=== PATIENT | male | born 1995 | race Caucasian/White ===

== ENCOUNTER 2019-03-03 02:36 | Emergency (ER) | payer BC, OTHER ==
[2019-03-03] MEDS ORDERED: HYDROmorphone 1 MG/ML Syringe IVPUSH ONE (03:08)
[2019-03-03] MEDS ORDERED: Ondansetron 4 MG/2 ML SDV IVPUSH ONE (03:09)
[2019-03-03] MEDS ORDERED: Sodium Chloride 0.9% 1,000 ML IV SCH (03:15)
[2019-03-03] MEDS ORDERED: Ketorolac 30 MG/ML SDV IVPUSH SCH (03:15)
--- NOTE | 2019-03-03 03:15 | EDM.PDOC ---
ED HPI GENERAL MEDICAL PROBLEM - General Chief Complaint: Chest Pain Stated Complaint: CHEST PAIN Time Seen by Provider: 03/03/19 03:08 Source of Information: Reports: Patient, Family (mother) History Limitations: Reports: No Limitations - History of Present Illness INITIAL COMMENTS - FREE TEXT/NARRATIVE: 23-year-old male presents to the ED with sudden onset of severe left parasternal sharp stabbing pain made worse by deep breathing about 3 and half hours ago. He states it's been constant and seems to be radiating down towards the left nipple. It is worsened by deep breathing. He denies any cough or sputum production no fever or chills. No recent chest wall trauma. 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 He has no risk factors or recent travel history to support a diagnosis of DVT. He is otherwise in good health takes no medications. He used to smoke cigarettes but quit in 2018.. Onset: Today Onset Date: 03/03/19 Onset Time: 00:00 Duration: Hour(s):, Constant, Getting Worse, Other (Intensifies once in a while especially with deep breathing.) Location: Reports: Chest (Sharp pleuritic chest pain just to the left of the lower sternum that radiates towards the left nipple.) Quality: Reports: Sharp, Stabbing Severity: Moderate Improves with: Reports: Rest Worsens with: Reports: Movement (7 on a 10 certain movements make it worse and deep breathing.) Context: Denies: Activity, Exercise, Lifting, Sick Contact, Trauma, Other Associated Symptoms: Reports: No Other Symptoms, Chest Pain, Shortness of Breath. 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 CLERK TYPIST: Reports: Other (see below) Lower Chest Pain Score (Numeric/FACES): 7 - Related Data Allergies Allergy/AdvReac Type Severity Reaction Status Date / Time azithromycin [From Zithromax] Allergy Cannot Verified 03/03/19 02:44 Remember Home Meds: Home Meds Diclofenac Sodium [Voltaren] 50 mg PO TID #21 tab.ec 03/03/19 [Rx] Past Medical History - Past Health History Medical/Surgical History: Denies Medical/Surgical History - Past Surgical History Male Surgical History: Reports: Circumcision Social & Family History - Family History Family Medical History: Noncontributory - Tobacco Use Smoking Status *Q: Former Smoker Used Tobacco, but Quit: Yes Month/Year Tobacco Last Used: 2018 - Caffeine Use Caffeine Use: Reports: None - Recreational Drug Use Recreational Drug Use: No ED ROS GENERAL - Review of Systems Review Of Systems: See Below Constitutional: Denies: Fever, Chills, Malaise, Weakness, Fatigue, Diaphoresis, Decreased Appetite, Weight Loss HEENT: Reports: No Symptoms Respiratory: Reports: Shortness of Breath, Pleuritic Chest Pain (Left parasternal area and into the left). Denies: Wheezing, Cough, Sputum ( lung lower lung field.), Hemoptysis, Other Cardiovascular: Reports: Chest Pain. Denies: Blood Pressure Problem, Claudication, Dyspnea on Exertion, Edema, Lightheadedness, Orthopnea (See history of present illness), Palpitations Endocrine: Reports: No Symptoms GI/Abdominal: Reports: No Symptoms : Reports: No Symptoms Musculoskeletal: Reports: No Symptoms Skin: Reports: No Symptoms Neurological: Reports: No Symptoms Psychiatric: Reports: No Symptoms Hematologic/Lymphatic: Reports: No Symptoms Immunologic: Reports: No Symptoms ED EXAM, GENERAL - Physical Exam Exam: See Below Exam Limited By: No Limitations General Appearance: Alert, WD/WN, No Apparent Distress, Other (Vital signs show temperature 36.1 which is inaccurate. Pulse is 92 respiratory to be 18 sats 99% on room air BP mildly elevated 160 /10/16 on initial assessment. It is currently down to 144/98) Eye Exam: Bilateral Eye: Normal Inspection Ears: Normal TMs Neck: Normal Inspection, Supple, Non-Tender, Full Range of Motion. No: Lymphadenopathy (L), Lymphadenopathy (R) Respiratory/Chest: No Respiratory Distress, Lungs Clear, Normal Breath Sounds, No Accessory Muscle Use, Chest Non-Tender, Other Cardiovascular: Normal Peripheral Pulses (I cannot elicit any chest wall tenderness on deep palpation on either anterior sides of his chest. No posterior thoracic pain either.), Regular Rate, Rhythm, No Edema, No Gallop, No Murmur, No Rub Peripheral Pulses: 3+: Posterior Tibial (L), Posterior Tibial (R), Dorsalis Pedis (L), Dorsalis Pedis (R) GI/Abdominal: Normal Bowel Sounds, Soft, Non-Tender, No Organomegaly, No Distention, No Abnormal Bruit, No Mass, Pelvis Stable, Other (No epigastric pain negative Walker sign) Back Exam: Normal Inspection, Full Range of Motion. No: CVA Tenderness (L), Paraspinal Tenderness Extremities: Normal Inspection, Normal Range of Motion, Non-Tender, No Pedal Edema Neurological: Alert, Oriented, CN II-XII Intact, Normal Cognition Psychiatric: Normal Affect, Normal Mood Skin Exam: Warm, Dry, Intact, Normal Color, No Rash EKG INTERPRETATION EKG Date: 03/03/19 Time: 02:42 Rhythm: NSR Rate (Beats/Min): 93 [place]: Normal P-Wave: Present QRS: Other (Left ventricular hypertrophy pattern normal for his age and stature) ST-T: Normal QT: Normal EKG Interpretation Comments: Normal ECG for his age Course - Vital Signs Last Recorded V/S: Last Vital Signs Temp 36.1 C 03/03/19 02:42 Pulse 92 03/03/19 02:42 Resp 18 03/03/19 02:42 BP 165/106 H 03/03/19 02:42 Pulse Ox 99 03/03/19 02:42 - Orders/Labs/Meds Orders: Active Orders 24 hr Category Date Time Status EKG Documentation Completion [RC] STAT Care 03/03/19 02:48 Active Chest 1V Frontal [CR] Stat Exams 03/03/19 02:48 Taken Ketorolac [Toradol] Med 03/03/19 03:15 Active 30 mg IVPUSH ONETIME Sodium Chloride 0.9% [Normal Saline] 1,000 ml Med 03/03/19 03:15 Active IV ASDIRECTED Medication Orders Sodium Chloride (Normal Saline) 1,000 mls @ 150 mls/hr IV ASDIRECTED BAILEY Last Admin: 03/03/19 03:19 Dose: 150 mls/hr Ketorolac Tromethamine (Toradol) 30 mg IVPUSH ONETIME BAILEY Last Admin: 03/03/19 03:19 Dose: 30 mg Labs: Laboratory Tests 03/03/19 03/03/19 03/03/19 Range/Units 03:15 03:15 03:15 WBC 11.03 H (4.23-9.07) K/mm3 RBC 5.64 (4.63-6.08) M/mm3 Hgb 16.3 (13.7-17.5) gm/L Hct 47.6 (40.1-51.0) % MCV 84.4 (79.0-92.2) fl MCH 28.9 (25.7-32.2) pg MCHC 34.2 (32.2-35.5) g/dl RDW Std Deviation 40.0 (35.1-43.9) fL Plt Count 351 H (163-337) K/mm3 MPV 8.8 L (9.4-12.3) fl Neutrophils % (Manual) 62 H (40-60) % Band Neutrophils % 1 (0-10) % Lymphocytes % (Manual) 27 (20-40) % Atypical Lymphs % 0 % Monocytes % (Manual) 8 (2-10) % Eosinophils % (Manual) 2 (0.8-7.0) % Basophils % (Manual) 0 L (0.2-1.2) Platelet Estimate Adequate Plt Morphology Comment Normal RBC Morph Comment Normal D-Dimer, Quantitative < 0.19 L (0.19-0.50) mg/L Sodium 140 (136-145) mEq/L Potassium 4.0 (3.5-5.1) mEq/L Chloride 102 (98-107) mEq/L Carbon Dioxide 28 (21-32) mEq/L Anion Gap 14.0 (5-15) BUN 18 (7-18) mg/dL Creatinine 1.0 (0.7-1.3) mg/dL Est Cr Clr Drug Dosing 124.45 mL/min Estimated GFR (MDRD) > 60 (>60) mL/min BUN/Creatinine Ratio 18.0 (14-18) Glucose 122 H (74-106) mg/dL Calcium 9.2 (8.5-10.1) mg/dL Total Bilirubin 0.4 (0.2-1.0) mg/dL AST 24 (15-37) U/L ALT 40 (16-63) U/L Alkaline Phosphatase 80 (46-116) U/L CK-MB (CK-2) 1.4 (0-3.6) ng/ml Troponin I < 0.017 (0.00-0.056) ng/mL C-Reactive Protein 1.0 (<1.0) mg/dL Total Protein 7.7 (6.4-8.2) g/dl Albumin 4.1 (3.4-5.0) g/dl Globulin 3.6 gm/dL Albumin/Globulin Ratio 1.1 (1-2) Meds: Medications Generic Name Dose Route Start Last Admin Trade Name Margy PRN Reason Stop Dose Admin Sodium Chloride 1,000 mls @ 150 mls/hr 03/03/19 03:15 03/03/19 03:19 Normal Saline IV 150 mls/hr ASDIRECTED BAILEY Administration Ketorolac Tromethamine 30 mg 03/03/19 03:15 03/03/19 03:19 Toradol IVPUSH 30 mg ONETIME BAILEY Administration Discontinued Medications Generic Name Dose Route Start Last Admin Trade Name Freq PRN Reason Stop Dose Admin Dexamethasone 10 mg 03/03/19 04:32 Dexamethasone IV 03/03/19 04:33 ONETIME ONE Hydromorphone HCl 0.5 mg 03/03/19 03:08 03/03/19 03:19 Dilaudid IVPUSH 03/03/19 03:09 0.5 mg ONETIME ONE Administration Ondansetron HCl 4 mg 03/03/19 03:09 03/03/19 03:19 Zofran IVPUSH 03/03/19 03:10 4 mg ONETIME ONE Administration - Radiology Interpretation Free Text/Narrative:: 23-year-old male presents to the ED with acute onset of left anterior parasternal sharp stabbing pleuritic chest pain about 3-1/2 hours ago. He now is radiating slightly towards the left nipple. Made worse by certain movements and by deep breathing. No associated cough fever or chills. Lungs are clear to auscultation percussion. No chest wall pain elicited on exam. ECG shows normal sinus rhythm at 93/m with no other abnormalities noted. Portable chest x-ray is normal as well. Plan routine labs including a d-dimer. IV normal saline at 150 mils per hour. Given Toradol 30 mg IV with Dilaudid 0.5 mg IV and Zofran 4 mg IV for pain relief. - Re-Assessments/Exams Free Text/Narrative Re-Assessment/Exam: 03/03/19 04:27 Labs reveal a slightly elevated white count of 11.03. The differential 62% neutrophils and 1% bands. Hemoglobin is 16.3 with hematocrit of 47.6 indicating mild hemoconcentration. Plan count 351,000. D-dimer was less than 0.19. Sodium is 140 with a potassium of 4.0. Chloride 102 with a bicarbonate of 28. And a gap is 14.0. BUN is 18 with a creatinine of 1.0. GFR is greater than 60. Glucose 122. Calcium 9.2. Liver function normal. CK-MB was 1.4 troponin I is less than 0.017. C-reactive protein is 1.0. Total protein is 7.7. Albumin fraction is 4.1. 03/03/19 04:33 labs essentially are normal and did not shed any light in the obvious cause of pleuritic chest pain. It is most likely viral in origin. Patient is feeling much improved. States he has very minimal discomfort in his left precordial chest at this time. He is able to take a full deep breath now. To give him a dose of dexamethasone 10 mg IV to further reduce inflammation. I will put him on Voltaren 50 mg 3 times a day for the next 7 days to take away pain and inflammation. He will follow-up if he develops any kind of fever chills or productive cough. Departure - Departure Time of Disposition: 04:34 Disposition: Home, Self-Care 01 Condition: Fair Clinical Impression: Pleuritic chest pain, Non-cardiac chest pain Prescriptions: Diclofenac Sodium [Voltaren] 50 mg PO TID #21 tab.ec Referrals: PCP,None [Ordering Only Provider] - Forms: ED Department Discharge Additional Instructions: Evaluation the emergency room tonight in regards to development of significant left parasternal anterior chest pain which was very sharp and stabbing suggesting a pleuritic component to the pain. I.e. was worsened by taking a deep breath. Of illness otherwise in terms of fever chills or productive cough. ECG proved to be completely normal. Chest x-ray was normal as well. Lab tests revealed no signs of an infective process. He also did not show any signs of blood clot in the lung or heart related illness. This is most likely caused by a viral infection in the lining of the chest wall usually the pleura that lines the inside of the rib cage or the muscles in between the ribs. You're treated in the ED with anti-inflammatory Toradol 30 mg IV and a small dose of pain medicine Dilaudid 0.5 mg. You were also given dexamethasone 10 mg IV prior to discharge which will start to work in 4-6 hours to repeat reduce inflammation further. I suggest starting anti-inflammatory Voltaren 50 mg 3 times daily for the next 7 days to further reduce pain and inflammation. Return to medical care if you develop fever chills or productive cough. Follow-up with personal care physician if not markedly improved in 5-7 days time. - My Orders Last 24 Hours: My Active Orders 03/03/19 02:48 EKG Documentation Completion [RC] STAT Chest 1V Frontal [CR] Stat 03/03/19 03:15 Ketorolac [Toradol] 30 mg IVPUSH ONETIME Sodium Chloride 0.9% [Normal Saline] 1,000 ml IV ASDIRECTED - Assessment/Plan Last 24 Hours: My Active Orders 03/03/19 02:48 EKG Documentation Completion [RC] STAT Chest 1V Frontal [CR] Stat 03/03/19 03:15 Ketorolac [Toradol] 30 mg IVPUSH ONETIME Sodium Chloride 0.9% [Normal Saline] 1,000 ml IV ASDIRECTED
[2019-03-03] MEDS ORDERED: Dexamethasone 4 MG/ML 5 ML MDV IV ONE (04:32)
--- NOTE | 2019-03-03 09:02 | CR ---
Chest: Frontal view of the chest was obtained. Comparison: No prior chest x-ray. Heart size and mediastinum are normal. Lungs are clear. Bony structures are unremarkable. Impression: 1. Nothing acute is appreciated on frontal chest x-ray. Diagnostic code #1
== END 2019-03-03 04:50 | disposition home or self-care (01) ==
LOC: JD.ED 02:36
DX: R07.81 Pleurodynia (principal); Z88.1 Allergy status to other antibiotic agents; Z87.891 Personal history of nicotine dependence
CPT/HCPCS: 36415; 71045; 80053; 82553; 84484; 85007; 85027; 85379; 86140; 93005; 96361; 96374; 96375; 99284; J1100; J1170; J1885; J2405; J7040; 93010; 99285

== ENCOUNTER 2019-07-22 12:26 | Emergency (ER) | payer OTHER ==
--- NOTE | 2019-07-22 14:27 | EDM.PDOC ---
ED HPI GENERAL MEDICAL PROBLEM - General Chief Complaint: Abdominal Pain Stated Complaint: ABDOMINAL PAIN Time Seen by Provider: 07/22/19 13:58 Source of Information: Reports: Patient, Family (Mother) History Limitations: Reports: No Limitations - History of Present Illness INITIAL COMMENTS - FREE TEXT/NARRATIVE: Mr. Atkins is a very pleasant 23-year-old man with no significant past medical or surgical history, who states that he has had nausea and vomiting on and off for the past 4 weeks, and right upper quadrant abdominal pain that radiates to his right lower quadrant on and off for the past 2 weeks. The pain does not radiate to his back. It is sharp in character. When present, it typically persists for about 3-4 hours, with an hour or two in between episodes. His pain is not modified with food, although his nausea and vomiting is worsened if he eats or drinks. He states that he feels best if he is in the position, worse if he is upright or walking, and he reported that his pain was made worse when I jiggled his gurney. No recent fever. The patient reports loose bowel movements about one week ago, but none since. The patient states that he saw his PCP on 07/17/2019. A CBC, CMP, lipase level, amylase level, and CRP were performed and all returned unremarkable. He was prescribed Zofran. His symptoms did not improve, therefore he saw his PCP again on 07/20/2019. A repeat CBC, CMP, lipase level, amylase level, and CRP were repeated (on 07/19/2019, prior to his followup visit), and all were again unremarkable. An ultrasound of his right upper quadrant performed on 07/19/2019 demonstrated sludge in his gallbladder, and the report indicates a sonographic Walker's sign, with the remainder of the ultrasound being negative. The patient was prescribed [place], with the plan for him to undergo an outpatient CT scan of his abdomen and pelvis with oral and IV contrast, however, that CT scan has not yet been scheduled. The patient states that he has been eating a low-fat diet. His last oral food was around 18:30 last night. The patient's PCP is Bridget Rockwell NP. Right Upper Abdomen Pain Score (Numeric/FACES): 7 - Related Data Allergies Allergy/AdvReac Type Severity Reaction Status Date / Time azithromycin [From Zithromax] Allergy Cannot Verified 07/22/19 12:45 Remember Home Meds: Home Meds Hydrocodone/Acetaminophen [Hydrocodon-Acetaminophen 5-325] 1 tab PO Q4H PRN 09/28 [History] Omeprazole Magnesium [Prilosec Otc] 20 mg PO DAILY PRN 07/22/19 [History] Ondansetron [Zofran] 4 mg PO Q4H PRN 07/22/19 [History] Past Medical History - Infectious Disease History Infectious Disease History: Reports: Chicken Pox - Past Surgical History Male Surgical History: Reports: Circumcision Social & Family History - Family History Family Medical History: Noncontributory - Tobacco Use Smoking Status *Q: Current Some Day Smoker Tobacco Use Within Last Twelve Months: Smokeless Tobacco (Quit chewing tobacco 2017), Vaping (nicotine) - Caffeine Use Caffeine Use: Reports: Soda - Alcohol Use Alcohol Use History: Yes Alcohol Use Frequency: Socially - Recreational Drug Use Recreational Drug Use: No - Living Situation & Occupation Living situation: Reports: Single, with Family 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 ED EXAM, GI/ABD - Physical Exam Exam: See Below Exam Limited By: No Limitations General Appearance: Alert, No Apparent Distress, Thin Eyes: Bilateral: Normal Appearance, EOMI Ears: Normal External Exam, Hearing Grossly Normal Nose: Normal Inspection Throat/Mouth: Normal Inspection, Normal Lips, Normal Voice, No Airway Compromise Head: Atraumatic, Normocephalic Neck: Normal Inspection, Full Range of Motion Respiratory/Chest: No Respiratory Distress, Lungs Clear, Normal Breath Sounds, No Accessory Muscle Use Cardiovascular: Normal Peripheral Pulses, Regular Rate, Rhythm, No Edema, No Gallop, No JVD, No Murmur, No Rub GI/Abdominal Exam: Normal Bowel Sounds, Soft, No Organomegaly, No Distention, No Abnormal Bruit, No Mass, Tender (Mild, to the right upper quadrant only. Nontender to the right lower quadrant or elsewhere.) (Male) Exam: Deferred Rectal (Males) Exam: Deferred Back Exam: Normal Inspection, Full Range of Motion, CVA Tenderness (R) (Mild, lower flank. Nontender to palpation without percussion.). No: CVA Tenderness (L ) Extremities: Normal Inspection, Normal Range of Motion, No Pedal Edema, Normal Capillary Refill Neurological: Alert, Oriented, Normal Cognition, No Motor/Sensory Deficits Psychiatric: Normal Affect Skin Exam: Warm, Dry, Intact, Normal Color, No Rash Course - Vital Signs Last Recorded V/S: Last Vital Signs Temp 36.4 C 07/22/19 12:37 Pulse 67 07/22/19 12:37 Resp 18 07/22/19 12:37 BP 124/85 07/22/19 12:37 Pulse Ox 95 07/22/19 12:37 - Orders/Labs/Meds Orders: Active Orders 24 hr Category Date Time Status Sodium Chloride 0.9% [Normal Saline] 1,000 ml Med 07/22/19 14:30 Active IV ASDIRECTED Medication Orders Sodium Chloride (Normal Saline) 1,000 mls @ 150 mls/hr IV ASDIRECTED BAILEY Last Admin: 07/22/19 15:07 Dose: 150 mls/hr Labs: Laboratory Tests 07/22/19 Range/Units 16:10 Urine Color Yellow (Yellow) Urine Appearance Clear (Clear) Urine pH 7.0 (5.0-8.0) Ur Specific [place] 1.015 (1.005-1.030) Urine Protein Negative (Negative) Urine Glucose (UA) Negative (Negative) Urine Ketones Negative (Negative) Urine Occult Blood Negative (Negative) Urine Nitrite Negative (Negative) Urine Bilirubin Negative (Negative) Urine Urobilinogen 1.0 (0.2-1.0) Ur Leukocyte Esterase Negative (Negative) Urine RBC Not seen (0-5) /hpf Urine WBC 0-5 (0-5) /hpf Ur Squamous Epith Cells 0-5 (0-5) /hpf Urine Bacteria Not seen (FEW) /hpf Urine Mucus Not seen (FEW) /hpf Meds: Medications Generic Name Dose Route Start Last Admin Trade Name Freq PRN Reason Stop Dose Admin Sodium Chloride 1,000 mls @ 150 mls/hr 07/22/19 14:30 07/22/19 15:07 Normal Saline IV 150 mls/hr ASDIRECTED BAILEY Administration Discontinued Medications Generic Name Dose Route Start Last Admin Trade Name Freq PRN Reason Stop Dose Admin Diatrizoate Meglum/Diatrizoate Sod 90 ml 07/22/19 15:56 07/22/19 16:24 Gastrografin 37% PO 07/22/19 15:57 90 ml ONETIME ONE Administration Iopamidol 100 ml 07/22/19 15:56 07/22/19 16:24 Isovue-300 (61%) IVPUSH 07/22/19 15:57 100 ml ONETIME ONE Administration Sodium Chloride 10 ml 07/22/19 15:56 07/22/19 16:24 Saline Flush FLUSH 07/22/19 15:57 10 ml ONETIME ONE Administration - Re-Assessments/Exams Free Text/Narrative Re-Assessment/Exam: 07/22/19 14:26 The etiology of the patient's symptoms is not immediately clear. His pain and tenderness is primarily in the right upper quadrant, and he has biliary sludge on an earlier ultrasound of the right upper quadrant, suggesting biliary colic, however, he also states that his pain radiates to his right lower quadrant, not to his right back, and his pain is not associated with food. For today's purposes, we will check a urinalysis to make sure that he does not have an unusual presentation of a ureterolith, along with a CT scan of his abdomen and pelvis with oral and IV contrast. The patient will be given IV fluid, but declined an offer for pain and antinausea medicine at this time. I do not see an indication to repeat blood work, since 2 sets of exhaustive bloodwork recently have been completely normal. 07/22/19 16:54 The patient's urinalysis is unremarkable. CT of the abdomen and pelvis with oral and IV contrast is read by Dr. Anthony as: 1. Slightly prominent bladder wall. Please correlate that patient has no symptoms of cystitis. This may relate to lack of distention. 2. Appendix is seen and is normal in size. 3. No additional abnormality is noted. 07/22/19 17:15 Test results discussed with the patient and his mother. As above, today's workup is completely negative. Oddly, this may actually increase the likelihood that his pain is due to biliary colic, since other etiologies have effectively been ruled out. The next appropriate test would be a HIDA scan, which I explained to the patient needs to be done as an outpatient. Since the patient is already being worked up for this condition by his PCP, I am recommending that he follow up with her to order the HIDA scan, as opposed to referring him to a surgeon. Departure - Departure Time of Disposition: 17:16 Disposition: Home, Self-Care 01 Condition: Good Clinical Impression: Right upper quadrant abdominal pain of unknown etiology - Discharge Information *PRESCRIPTION DRUG MONITORING PROGRAM REVIEWED*: Not Applicable *COPY OF PRESCRIPTION DRUG MONITORING REPORT IN PATIENT JONATHAN: Not Applicable Instructions: Abdominal Pain, Adult, [id number] Referrals: Bridget Rockwell NP [Primary Care Provider] - Forms: ED Department Discharge Additional Instructions: You were seen in the emergency room for evaluation for 4 weeks of nausea and vomiting and 2 weeks of right upper abdominal pain. Workup in the ER included a urinalysis and a CT scan of your abdomen and pelvis with oral and IV contrast. Since you recently had negative blood work, additional blood work was not repeated today. Your entire workup was unremarkable. You do not have a urinary tract infection. He did not have appendicitis. He did not have pancreatitis. The cause of your abdominal symptoms is not known, but could be due to a sick gallbladder. Further evaluation is needed. The next appropriate test would be a HIDA scan. This is an outpatient study that cannot be performed from the ER. We recommend that you follow-up with your PCP, Bridget Rockwell NP, to arrange or this test. As before, we recommend that you eat as low-fat a diet as possible. Stay adequately hydrated. If any other problems, please do not hesitate to return to the ER. - My Orders Last 24 Hours: My Active Orders 07/22/19 14:30 Sodium Chloride 0.9% [Normal Saline] 1,000 ml IV ASDIRECTED - Assessment/Plan Last 24 Hours: My Active Orders 07/22/19 14:30 Sodium Chloride 0.9% [Normal Saline] 1,000 ml IV ASDIRECTED
[2019-07-22] MEDS ORDERED: Sodium Chloride 0.9% 1,000 ML IV SCH (14:30)
[2019-07-22] MEDS ORDERED: Iopamidol 612 MG/ML 100 ML Bottle IVPUSH ONE (15:56)
[2019-07-22] MEDS ORDERED: Sodium Chloride 0.9% 10 ML Syringe FLUSH ONE (15:56)
[2019-07-22] MEDS ORDERED: Diatrizoate Meglumine/Diatrizoate Sodium 37% 120 ML Bottle PO ONE (15:56)
--- NOTE | 2019-07-22 16:38 | CT ---
CT abdomen and pelvis Technique: Multiple axial sections were obtained from above the dome of the diaphragm inferiorly through the pubic symphysis. Intravenous and oral contrast was utilized. Comparison: No prior abdominal imaging. Findings: Visualized lung bases show nothing acute. Liver contains no focal parenchymal abnormality. Spleen appears within normal limits. Adrenal glands show no nodule. Pancreas is within normal limits. Gallbladder contains no calcified gallstones. Kidneys show symmetric contrast enhancement without hydronephrosis or mass. Aorta shows no aneurysm. No retroperitoneal adenopathy or mesenteric abnormalities are seen. No pelvic mass or adenopathy is seen. Appendix is seen and is normal in size. Slightly prominent bladder wall is noted. No free fluid or inflammatory change is seen. Bone window settings were reviewed which appear within normal limits for the patient's age. Impression: 1. Slightly prominent bladder wall. Please correlate that patient has no symptoms of cystitis. This may relate to lack of distention. 2. Appendix is seen and is normal in size. 3. No additional abnormality is noted. Diagnostic code #3
== END 2019-07-22 17:40 | disposition home or self-care (01) ==
LOC: JD.ED 12:26
DX: R10.11 Right upper quadrant pain (principal); F17.290 Nicotine dependence, other tobacco product, uncomplicated; Z88.1 Allergy status to other antibiotic agents
CPT/HCPCS: 74177; 81001; 96360; 96361; 99284; J7040; Q9963; Q9967

== ENCOUNTER 2019-07-26 11:19 | Day surgery (SDC) | payer OTHER ==
--- NOTE | 2019-07-26 10:54 | PCM.PREANE ---
Preanesthetic Assessment - Anesthesia/Transfusion/Family Hx Anesthesia History: No Prior Anesthesia Family History of Anesthesia Reaction: No Transfusion History: No Prior Transfusion(s) - Review of Systems General: No Symptoms Pulmonary: Other (current smoker) Cardiovascular: No Symptoms Gastrointestinal: Abdominal Pain Neurological: No Symptoms Other: Reports: None - Physical Assessment NPO Status Date: 07/25/19 NPO Status Time: 18:00 Weight: 81 kg ASA Class: 2 Mental Status: Alert & Oriented x3 Airway Class: Mallampati = 1 Dentition: Reports: Normal Dentition Thyro-Mental Finger Breadths: 3 Mouth Opening Finger Breadths: 3 ROM/Head Extension: Full Lungs: Clear to Auscultation, Normal Respiratory Effort Cardiovascular: Regular Rate, Regular Rhythm - Allergies Allergies/Adverse Reactions: Allergies Allergy/AdvReac Type Severity Reaction Status Date / Time azithromycin [From Zithromax] Allergy Cannot Verified 07/22/19 12:45 Remember - Blood Blood Available: No Product(s) Available: None - Anesthesia Plan Pre-Op Medication Ordered: None - Acknowledgements Anesthesia Type Planned: General Anesthesia Pt an Appropriate Candidate for the Planned Anesthesia: Yes Alternatives and Risks of Anesthesia Discussed w Pt/Guardian: Yes Pt/Guardian Understands and Agrees with Anesthesia Plan: Yes PreAnesthesia Questionnaire - Past Health History Medical/Surgical History: Denies Medical/Surgical History - Infectious Disease History Infectious Disease History: Reports: Chicken Pox - Past Surgical History Male Surgical History: Reports: Circumcision - HOME MEDS Home Medications: Home Meds Hydrocodone/Acetaminophen [Hydrocodon-Acetaminophen 5-325] 1 tab PO Q4H PRN 09/28 [History] Omeprazole Magnesium [Prilosec Otc] 20 mg PO DAILY PRN 07/22/19 [History] Ondansetron [Zofran] 4 mg PO Q4H PRN 07/22/19 [History] - CURRENT (IN HOUSE) MEDS Current Meds: Current Medications Ampicillin Sodium/Sulbactam (Sodium 3 gm/ Sodium Chloride) 100 mls @ 200 mls/ hr IV ONETIME ONE Stop: 07/26/19 12:29 Discontinued Medications Bupivacaine HCl (Marcaine 0.5%) Confirm Administered Dose 30 ml .ROUTE .STK-MED ONE Stop: 07/26/19 10:02 Cefazolin Sodium (Ancef) Confirm Administered Dose 2 gm .ROUTE .STK-MED ONE Stop: 07/26/19 09:44 Dexamethasone (Dexamethasone) Confirm Administered Dose 20 mg .ROUTE .STK-MED ONE Stop: 07/26/19 09:44 Fentanyl (Sublimaze) Confirm Administered Dose 250 mcg .ROUTE .STK-MED ONE Stop: 07/26/19 09:44 Lactated Ringer's (Ringers, Lactated) Confirm Administered Dose 1,000 mls @ as directed .ROUTE .ST-MED ONE Stop: 07/26/19 09:44 Iopamidol (Isovue-300 (61%)) Confirm Administered Dose 50 ml .ROUTE .ST-MED ONE Stop: 07/26/19 10:01 Midazolam HCl (Versed 1 Mg/Ml) Confirm Administered Dose 2 mg .ROUTE .ST-MED ONE Stop: 07/26/19 09:44 Ondansetron HCl (Zofran) Confirm Administered Dose 4 mg .ROUTE .STK-MED ONE Stop: 07/26/19 09:44 Propofol (Diprivan 20 Ml) Confirm Administered Dose 200 mg .ROUTE .STK-MED ONE Stop: 07/26/19 09:44 Rocuronium [place] (Zemuron) Confirm Administered Dose 50 mg .ROUTE .STK-MED ONE Stop: 07/26/19 09:44 Sodium Chloride (Normal Saline) Confirm Administered Dose 50 ml .ROUTE .STK-MED ONE Stop: 07/26/19 10:02
[~2019-07-26 11:19] MED LIST: Bupivacaine 0.5% 30 ML SDV ONE; Dexamethasone 4 MG/ML 5 ML MDV ONE; Iopamidol 612 MG/ML 50 ML SDV ONE; Lactated Ringers 1,000 ML ONE; Midazolam 1 MG/ML 2 ML SDV ONE; Ondansetron 4 MG/2 ML SDV ONE; Propofol 200 MG/20 ML SDV ONE; Rocuronium 50 MG/5 ML Vial ONE; Sodium Chloride 0.9% 50 ML SDV ONE; ceFAZolin 1 GM Vial ONE; fentaNYL 250 MCG/5 ML SDV ONE
[2019-07-26] MEDS ORDERED: Lidocaine 1% 4 ML ONE (11:25)
[2019-07-26] MEDS ORDERED: Lidocaine 1%/Sod Bicarbonate in NS 8.4% 1 ML Syringe IDERM PRN (11:51)
[2019-07-26] MEDS ORDERED: Sodium Chloride 0.9% 10 ML Syringe FLUSH PRN (11:51)
[2019-07-26] MEDS ORDERED: Ampicillin/Sulbactam Na 3 GM in Sodium Chloride 0.9% 100 ML IV ONE (12:00)
[2019-07-26] MEDS ORDERED: Lactated Ringers 1,000 ML IV SCH (12:00)
[2019-07-26] MEDS ORDERED: HYDROmorphone 0.5 MG/0.5 ML Syringe ONE ×2 (12:32→13:01)
[2019-07-26] MEDS ORDERED: Ketorolac 30 MG/ML SDV ONE (12:43)
[2019-07-26] MEDS ORDERED: Ketamine 500 mg/10 ML MDV ONE (12:43)
[2019-07-26] MEDS ORDERED: Neostigmine Methylsulfate 1 MG/ML 5 ML Syringe ONE (13:03)
[2019-07-26] MEDS ORDERED: Albuterol 0.083% 2.5 MG/3 ML Neb Soln NEB PRN (13:08)
[2019-07-26] MEDS ORDERED: Ondansetron 4 MG/2 ML SDV IVPUSH PRN (13:08)
[2019-07-26] MEDS ORDERED: HYDROmorphone 0.5 MG/0.5 ML Syringe IVPUSH PRN (13:08)
[2019-07-26] MEDS ORDERED: fentaNYL 100 MCG/2 ML SDV IVPUSH PRN (13:08)
[2019-07-26] MEDS ORDERED: ePHEDrine 50 MG/ML SDV IVPUSH PRN (13:08)
[2019-07-26] MEDS ORDERED: Phenylephrine 1 MG in Sodium Chloride 0.9% 10 ML IV SCH (13:15)
[2019-07-26] MEDS ORDERED: Bupivacaine 0.5% 30 ML SDV ONE ×2 (13:31→14:15)
--- NOTE | 2019-07-26 13:49 | CR ---
Operative cholangiogram: Multiple fluoroscopic spot views were obtained during operative cholangiogram exam. There is opacification CHD and CBD. No filling defects are seen to indicate definite retained stone. Contrast is noted in the duodenum. Distal CBD is somewhat narrowed which is likely artifact given that no proximal dilatation is seen. Impression: 1. No abnormality is seen on operative cholangiogram exam. Diagnostic code #1
--- NOTE | 2019-07-26 13:51 | PCM.OPNOTE ---
- General Post-Op/Procedure Note Date of Surgery/Procedure: 07/26/19 Operative Procedure(s): lap andrew with ioc Pre Op Diagnosis: cholecystitis Post-Op Diagnosis: Same Anesthesia Technique: General ET Tube Primary Surgeon: Elliott Woodard EBL in mLs: 5 Complications: None Condition: Good
--- NOTE | 2019-07-26 13:55 | PCM.POSTAN ---
POST ANESTHESIA ASSESSMENT - MENTAL STATUS Mental Status: Alert - VITAL SIGNS Vital Signs: Last Vital Signs Temp 97.3f 07/26/19 1349 Pulse 63 07/26/19 1349 Resp 11 07/26/19 1349 BP 141/95 07/26/19 1349 Pulse Ox 100 07/26/19 1349 - RESPIRATORY Respiratory Status: Respiratory Rate WNL, Airway Patent, O2 Saturation Stable, Supplemental Oxygen - CARDIOVASCULAR CV Status: Pulse Rate WNL, Blood Pressure Stable - GASTROINTESTINAL GI Status: No Symptoms - POST OP HYDRATION Hydration Status: Adequate & Stable
[2019-07-26] MEDS ORDERED: Sodium Chloride 0.9% 50 ML SDV ONE (14:15)
[2019-07-26] MEDS ORDERED: Iopamidol 612 MG/ML 50 ML SDV ONE (14:15)
--- NOTE | 2019-07-26 15:01 | PCM48HPAN ---
Post Anesthesia Note - EVALUATION WITHIN 48HRS OF ANESTHETIC Vital Signs in Normal Range: Yes Patient Participated in Evaluation: Yes Respiratory Function Stable: Yes Airway Patent: Yes Cardiovascular Function Stable: Yes Hydration Status Stable: Yes Pain Control Satisfactory: Yes Nausea and Vomiting Control Satisfactory: Yes Mental Status Recovered: Yes Vital Signs: Last Vital Signs Temp 36.4 C 07/26/19 14:39 Pulse 64 07/26/19 11:30 Resp 17 07/26/19 14:39 BP 151/89 H 07/26/19 14:39 Pulse Ox 100 07/26/19 14:39
--- NOTE | 2019-07-27 08:30 | OR ---
DATE OF OPERATION: 07/26/2019 SURGEON: Elliott Woodard MD PREOPERATIVE DIAGNOSIS: Acute cholecystitis. POSTOPERATIVE DIAGNOSIS: Acute cholecystitis. OPERATION PERFORMED: Laparoscopic cholecystectomy and intraoperative cholangiogram. FINDINGS: Intraoperative cholangiogram was unremarkable. There were adhesions over the fundus of the gallbladder. ESTIMATED BLOOD LOSS: About 2 mL. ANESTHESIA: Procedure done under general anesthetic. DESCRIPTION OF PROCEDURE: The patient was taken to the operating room and placed in supine position, connected to monitoring equipment, given IV sedation. SCDs were placed, antibiotics were given, and the abdomen was prepped with chlorhexidine and alcohol prep, draped off in a sterile fashion. An incision was made just below the umbilicus and using a 5 mm Opti port, the abdominal cavity was entered. Froilan trocar placed and a 5 mm 0-degree camera was inserted. Abdominal cavity was scanned showing adhesions to the gallbladder in the right upper quadrant. A 10 mm trocar was placed in the epigastric position, 5 mm trocar placed in right upper and right lateral position. Fundus of the gallbladder was then operated on first taking the adhesions of the omentum down and the patient placed in reverse Trendelenburg with a tilt to the left. Fundus of the gallbladder retracted in a caudal position and further adhesions around the Salo pouch were taken down. The Salo pouch was then once freed, retracted in a caudal position. The Calot's triangle was then dissected out showing cystic duct and Salo pouch junction, cystic artery, and cystic plate. Two clips were placed on the cystic artery, 1 proximal and 1 distal, and the cystic duct was clamped at its junction with the gallbladder, and a cholangiocatheter was then inserted in the cystic duct and a cholangiogram using the C-arm and contrast material diluted with equal parts of saline was obtained. This was normal. The cholangiocatheter was removed and the cystic duct was clipped with 2 clips and cut, cystic artery cut, and the gallbladder was then dissected from its attachments to the liver plate and put in an endobag and removed from the abdominal cavity at the epigastric port. The area was checked, excellent hemostasis noted, pneumoperitoneum removed, and the fascia of the subumbilical port which had to be enlarged to remove the gallbladder was then closed with an interrupted 0 Vicryl suture. Skin of each port closed with subdermal interrupted 4-0 Dexon suture and Steri-Strips were applied, and each port injected with 0.5% Marcaine. Sterile dressing placed. The patient tolerated the procedure and sent to recovery room in a stable condition. MMVANESA /[id number]
== END 2019-07-26 15:30 | disposition home or self-care (01) ==
LOC: JD.SDS 11:19
PROVIDERS: ATTEND Surgery
DX: K81.1 Chronic cholecystitis (principal); K83.8 Other specified diseases of biliary tract; Z79.899 Other long term (current) drug therapy; Z79.891 Long term (current) use of opiate analgesic; Z88.1 Allergy status to other antibiotic agents; Z87.891 Personal history of nicotine dependence
CPT/HCPCS: 47563; 74300; J0295; J1100; J1170; J1885; J2001; J2250; J2405; J2704; J2710; J3010; J3490; J7030; J7120; Q9967; 00790; J0690

== ENCOUNTER 2019-08-08 07:20 | Emergency (ER) | payer OTHER ==
[2019-08-08] MEDS ORDERED: Sodium Chloride 0.9% 10 ML Syringe FLUSH PRN (07:45)
[2019-08-08] MEDS ORDERED: Acetaminophen 325 MG Tab PO ONE (07:47)
--- NOTE | 2019-08-08 07:51 | EDM.PDOC ---
ED HPI GENERAL MEDICAL PROBLEM - General Chief Complaint: Abdominal Pain Stated Complaint: [facility] Time Seen by Provider: 08/08/19 07:26 Source of Information: Reports: Patient, Family (mother), RN Notes Reviewed - History of Present Illness INITIAL COMMENTS - FREE TEXT/NARRATIVE: 23-year-old male comes in with pleuritic chest pain. It sudden onset of this about 45 minutes ago. He was home just getting ready for work when he had sudden onset of sharp pain right lower chest worse with deep breathing. He did feel somewhat short of breath with that. The pain was quite severe. All his mother wondering what to do and she advised him to call 911. His therefore transferred here by ambulance. The pain on arrival to ED is not quite as intense that he still does have pain with deep breathing. He no longer feels short of breath but does not feel that he can take a deep breath. He did have laparoscopic gallbladder surgery about 2 weeks ago. Surgery went well. He was completely back to normal with no residual abdominal discomfort. He is gotten back to normal activities. He does smoke and he did start smoking again and also admits that he does "vape" and has done some of that the last few days but "not a lot". Treatments OUTREACH COUNSELOR: Reports: IV/IO Left Epigastric Pain Score (Numeric/FACES): 8 - Related Data Allergies Allergy/AdvReac Type Severity Reaction Status Date / Time azithromycin [From Zithromax] Allergy Rash Verified 08/08/19 07:28 Home Meds: Home Meds . [No Known Home Meds] 08/08/19 [History] Past Medical History - Past Health History Medical/Surgical History: Denies Medical/Surgical History - Infectious Disease History Infectious Disease History: Reports: Chicken Pox - Past Surgical History GI Surgical History: Reports: Cholecystectomy Male Surgical History: Reports: Circumcision Social & Family History - Family History Family Medical History: Noncontributory - Tobacco Use Smoking Status *Q: Current Every Day Smoker Years of Tobacco use: 1 Packs/Tins Daily: 0.2 - Caffeine Use Caffeine Use: Reports: Coffee, Soda - Recreational Drug Use Recreational Drug Use: No - Living Situation & Occupation Living situation: Reports: Single, with Family 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 Denies: Nausea, Vomiting Musculoskeletal: Denies: Shoulder Pain, Arm Pain, Back Pain Skin: Reports: No Symptoms Neurological: Denies: Dizziness, Numbness, Tingling ED EXAM, GENERAL - Physical Exam Exam: See Below General Appearance: Alert, Mild Distress Eye Exam: Bilateral Eye: PERRL Throat/Mouth: Normal Inspection, Normal Oropharynx Head: Atraumatic Neck: Supple Respiratory/Chest: No Respiratory Distress, Lungs Clear, Normal Breath Sounds, Chest Non-Tender Cardiovascular: Regular Rate, Rhythm GI/Abdominal: Soft, Tender (Very minimal tenderness upper mid abdomen) Back Exam: No: CVA Tenderness (L), CVA Tenderness (R) Extremities: Normal Inspection. No: Pedal Edema, Leg Pain, Increased Warmth, Redness Neurological: Alert, Oriented, No Motor/Sensory Deficits Skin Exam: Warm, Dry, Normal Color EKG INTERPRETATION EKG Date: 08/08/19 Rhythm: NSR [place]: Normal P-Wave: Present QRS: Normal ST-T: Normal QT: Normal Course - Vital Signs Last Recorded V/S: Last Vital Signs Temp 97.2 F 08/08/19 07:25 Pulse 77 08/08/19 07:25 Resp 18 08/08/19 07:25 BP 134/85 08/08/19 07:25 Pulse Ox 100 08/08/19 07:25 - Orders/Labs/Meds Orders: Active Orders 24 hr Category Date Time Status EKG 12 Lead [EKG Documentation Completion] [RC] STAT Care 08/08/19 07:46 Active Peripheral IV Care [RC] . DIRECTED Care 08/08/19 07:46 Active Sodium Chloride 0.9% [Saline Flush] Med 08/08/19 07:45 Active 10 ml FLUSH ASDIRECTED PRN Peripheral IV Insertion Adult [OM.PC] Stat Oth 08/08/19 07:46 Ordered Medication Orders Sodium Chloride (Saline Flush) 10 ml FLUSH ASDIRECTED PRN PRN Reason: Keep Vein Open Last Admin: 08/08/19 07:53 Dose: 10 ml Labs: Laboratory Tests 10/08/08/19 08/08/19 Range/Units 07:55 07:55 07:55 WBC 8.47 (4.23-9.07) K/mm3 RBC 5.76 (4.63-6.08) M/mm3 Hgb 16.6 (13.7-17.5) gm/dl Hct 48.7 (40.1-51.0) % MCV 84.5 (79.0-92.2) fl MCH 28.8 (25.7-32.2) pg MCHC 34.1 (32.2-35.5) g/dl RDW Std Deviation 41.0 (35.1-43.9) fL Plt Count 351 H (163-337) K/mm3 MPV 8.5 L (9.4-12.3) fl Neut % (Auto) 65.1 (34.0-67.9) % Lymph % (Auto) 21.0 L (21.8-53.1) % [place] % (Auto) 8.5 (5.3-12.2) % Eos % (Auto) 5.1 (0.8-7.0) Baso % (Auto) 0.2 (0.1-1.2) % Neut # (Auto) 5.51 H (1.78-5.38) K/mm3 Lymph # (Auto) 1.78 (1.32-3.57) K/mm3 [place] # (Auto) 0.72 (0.30-0.82) K/mm3 Eos # (Auto) 0.43 (0.04-0.54) K/mm3 Baso # (Auto) 0.02 (0.01-0.08) K/mm3 D-Dimer, Quantitative 0.21 (0.19-0.50) mg/L Sodium 142 (136-145) mEq/L Potassium 4.4 (3.5-5.1) mEq/L Chloride 103 (98-107) mEq/L Carbon Dioxide 31 (21-32) mEq/L Anion Gap 12.4 (5-15) BUN 14 (7-18) mg/dL Creatinine 1.0 (0.7-1.3) mg/dL Est Cr Clr Drug Dosing 128.26 mL/min Estimated GFR (MDRD) > 60 (>60) mL/min BUN/Creatinine Ratio 14.0 (14-18) Glucose 99 (74-106) mg/dL Calcium 9.3 (8.5-10.1) mg/dL Total Bilirubin 0.7 (0.2-1.0) mg/dL AST 13 L (15-37) U/L ALT 21 (16-63) U/L Alkaline Phosphatase 69 (46-116) U/L Total Protein 7.4 (6.4-8.2) g/dl Albumin 4.0 (3.4-5.0) g/dl Globulin 3.4 gm/dL Albumin/Globulin Ratio 1.2 (1-2) Meds: Medications Generic Name Dose Route Start Last Admin Trade Name Freq PRN Reason Stop Dose Admin Sodium Chloride 10 ml 08/08/19 07:45 08/08/19 07:53 Saline Flush FLUSH 10 ml ASDIRECTED PRN Administration Keep Vein Open Discontinued Medications Generic Name Dose Route Start Last Admin Trade Name Freq PRN Reason Stop Dose Admin Acetaminophen 975 mg 08/08/19 07:47 08/08/19 07:53 Tylenol PO 08/08/19 07:48 975 mg NOW ONE Administration - Re-Assessments/Exams Free Text/Narrative Re-Assessment/Exam: 08/08/19 09:50 Labs did come back normal, d-dimer normal. Chest x-ray shows a small area of increased density right lower lung field, possible granuloma possible overlying shadows, see radiology report for details. EKG normal. cardiac monitor and EKG have shown sinus rhythm, no ectopy. Symptoms are most compatible with pleurisy, he has had that before. Have discussed his need to quit smoking and his need to quit vaping. Discharge instructions as documented. Departure - Departure Time of Disposition: 09:13 Disposition: Home, Self-Care 01 Condition: Fair Clinical Impression: Pleurisy Instructions: Pleurisy, Sekh-so-Czek Referrals: Bridget Rockwell NP [Primary Care Provider] - Forms: ED Department Discharge Additional Instructions: Advil or ibuprofen 600 mg 3 times daily with food for the next several days or until discomfort completely gone, take Tylenol in between doses if needed for further pain relief. Follow-up clinic if symptoms do not resolve within 3-5 days as expected. Return to ED as needed if symptoms worsening in any way. Try hard to stop smoking, stop vaping. - My Orders Last 24 Hours: My Active Orders 08/08/19 07:45 Sodium Chloride 0.9% [Saline Flush] 10 ml FLUSH ASDIRECTED PRN 08/08/19 07:46 EKG 12 Lead [EKG Documentation Completion] [RC] STAT Peripheral IV Care [RC] . DIRECTED Peripheral IV Insertion Adult [OM.PC] Stat - Assessment/Plan Last 24 Hours: My Active Orders 08/08/19 07:45 Sodium Chloride 0.9% [Saline Flush] 10 ml FLUSH ASDIRECTED PRN 08/08/19 07:46 EKG 12 Lead [EKG Documentation Completion] [RC] STAT Peripheral IV Care [RC] . DIRECTED Peripheral IV Insertion Adult [OM.PC] Stat
--- NOTE | 2019-08-08 08:49 | CR ---
Chest: Two views of the chest were obtained. Comparison: Prior chest x-ray of 03/03/19. Findings: Heart size and mediastinum are normal. Slight nodular density is noted within the right lung base. Lungs otherwise are clear. Bony structures appear within normal limits. Surgical clips are seen within the upper abdomen. Impression: 1. Small nodule within the right lung base. This is most likely due to a small granuloma or due to overlapping lung markings. This is not definitely seen on recent chest x-ray. 2. Nothing acute is appreciated on two-view chest x-ray. Diagnostic code #2
== END 2019-08-08 09:43 | disposition home or self-care (01) ==
LOC: JD.ED 07:20
DX: R09.1 Pleurisy (principal); F17.210 Nicotine dependence, cigarettes, uncomplicated; Z88.1 Allergy status to other antibiotic agents
CPT/HCPCS: 36415; 71046; 71046-26; 80053; 85025; 85379; 93005; 93010; 99283; 99284-25; A9270-GY